=== PATIENT | female | born 1995 | race Caucasian/White ===

== ENCOUNTER 2018-12-12 20:23 | Emergency (ER) | payer MEDICAID ==
[~2018-12-12] VITALS: Ht 165.1 cm; Wt 89.4 kg
[2018-12-12 20:30] VITALS: Ht 165.1 cm; Wt 89.4 kg
[2018-12-12 22:02] VITALS: BP 124/78
== END 2018-12-12 22:02 | disposition home or self-care (01) ==
LOC: ED 20:23
DX: O23.42 Unspecified infection of urinary tract in pregnancy, second trimester (principal); Z3A.20 20 weeks gestation of pregnancy